=== PATIENT | male | born 1970 | race Caucasian/White ===

== ENCOUNTER 2021-09-01 11:46 | Inpatient (IN) | payer MEDICAID ==
[~2021-09-01] VITALS: Ht 167.6 cm; Wt 65.5 kg
[2021-09-01] MEDS ORDERED: HYDROcodone/acetaminophen 10/325mg tab PO ONE (12:45)
[2021-09-01 13:01] LABS: BASOPHILS # (AUTO) 0.1 X10'3 (0-0.2); BASOPHILS % (AUTO) 0.3 % (0-1); EOSINOPHILS % (AUTO) 0.1 % (0-6); HEMATOCRIT 37.4 % (42.0-52.0); HEMOGLOBIN 12.3 g/dl (14.0-17.9); LYMPHOCYTES # (AUTO) 0.9 X10'3 (1.1-4.8); LYMPHOCYTES % (AUTO) 5.3 % (21-51); MEAN CORPUSCULAR HEMOGLOBIN 31.2 PG (27.0-31.0); MEAN CORPUSCULAR HGB CONC 32.9 g/dL (33.0-36.5); MEAN CORPUSCULAR VOLUME 94.8 FL (78-98); MEAN PLATELET VOLUME 7.1 FL (7.4-10.4); MONOCYTES # (AUTO) 1.7 X10'3 (0-0.9); MONOCYTES % (AUTO) 10.3 % (2-12); NEUTROPHILS # (AUTO) 14.1 X10'3 (1.8-7.7); PLATELET COUNT 425 X10'3 (140-440); RED BLOOD COUNT 3.94 X10'6 (4.70-6.10); RED CELL DISTRIBUTION WIDTH 14.3 % (11.5-14.5); WHITE BLOOD COUNT 16.8 X10'3 (4.5-11.0)
[2021-09-01 13:16] LABS: ALANINE AMINOTRANSFERASE 27 U/L (12-78); ALBUMIN 2.1 G/DL (3.4-5.0); ALBUMIN/GLOBULIN RATIO 0.4 (1.1-1.5); ALKALINE PHOSPHATASE 91 IU/L (46-116); ANION GAP 13 (8-16); ASPARTATE AMINO TRANSFERASE 24 U/L (10-37); BILIRUBIN,TOTAL 0.2 MG/DL (0.1-1.0); BLOOD UREA NITROGEN 22 MG/DL (7-18); BUN/CREATININE RATIO 19.3 (5.4-32.0); CALCIUM 8.5 MG/DL (8.5-10.1); CHLORIDE 100 MMOL/L (99-107); CREATININE 1.14 MG/DL (0.60-1.10); GLUCOSE 108 MG/DL (70-104); POTASSIUM 3.4 MMOL/L (3.5-5.1); SODIUM 135 MMOL/L (135-145); TOTAL CARBON DIOXIDE 22.3 MMOL/L (24-32); TOTAL PROTEIN 7.1 G/DL (6.4-8.2); eGFR 67 ML/MIN
[2021-09-01] MEDS ORDERED: cefTRIAXone 1g/NS 100ml IVPB 100 ML IV ONE (14:50)
[2021-09-01] MEDS ORDERED: normal saline 1000ML IV soln IVB ONE (14:50)
[2021-09-01 14:59] LABS: CLARITY,URINE CLOUDY (Clear); GLUCOSE, URINE NEGATIVE (Neg); KETONES,URINE TRACE mg/dl (Neg); LEUKOCYTE ESTERASE ,URINE TRACE (Neg); NITRITES, URINE NEGATIVE (Neg); OCCULT BLOOD,URINE TRACE-INTACT (Neg); PROTEIN,URINE 30 mg/dl (Neg)
[2021-09-01 15:01] LABS: COLOR,URINE DARK YELLOW (Yellow); UA COLLECTION TYPE CLN CATCH MIDSTREAM
[2021-09-01 15:07] LABS: BACTERIA,URINE 4+ /HPF (Neg); MUCUS STRANDS NONE SEEN /LPF (Neg); RBC,URINE 0-2 /HPF (0-2); SQUAMOUS EPITHELIAL CELL,UR FEW /LPF (FEW)
[2021-09-01] MEDS ORDERED: NO HOME MEDS (15:46)
[2021-09-01] MEDS ORDERED: magnesium 4gm in 100ml NS 100 ML IV PRN (16:55)
[2021-09-01] MEDS ORDERED: ondansetron/PF 4mg/2ml inj IV PRN (16:55)
[2021-09-01] MEDS ORDERED: acetaminophen 325mg tablet PO PRN (16:55)
[2021-09-01] MEDS ORDERED: POTASSIUM BICARB 20meq eff tab 20 MEQ TABLET.EFF PO PRN (16:55)
[2021-09-01] MEDS ORDERED: magnesium 2GM in 50ml NS 50 ML IV PRN (16:55)
[2021-09-01] MEDS ORDERED: magnesium Cl slow-release 64mg tablet PO PRN (16:55)
[2021-09-01] MEDS ORDERED: potassium CL 10mEq/100ml bag 100 ML IV PRN (16:55)
[2021-09-01] MEDS ORDERED: LORazepam 2 mg/ml vial IV PRN (17:25)
[2021-09-01] MEDS: thiamine 100mg tablet PO SCH (17:40)
[2021-09-01] MEDS: folic acid 1mg tablet PO SCH (17:40)
[2021-09-01] MEDS: nicotine 14mg patch - 24hr TD SCH (17:40)
[2021-09-01] MEDS: multivitamins, therapeutics tablet PO SCH (17:41)
[2021-09-01] MEDS: normal saline 1000ml 1,000 ML IV SCH (17:41)
[2021-09-01] MEDS: morphine 2 MG/ML inj. syringe IV PRN (19:37)
[2021-09-01] MEDS: POTASSIUM BICARB 20meq eff tab 20 MEQ TABLET.EFF PO PRN (20:10)
[2021-09-01] MEDS: heparin, porcine 5000 units/ml vial SQ SCH (20:11)
[2021-09-01] MEDS: K and/or MAG REPLACEMENT MC SCH (20:15)
[2021-09-01 20:45] VITALS: BP 114/63
[2021-09-01 22:00] VITALS: BP 114/67
[2021-09-01] MEDS: acetaminophen 325mg tablet PO PRN (22:24)
[2021-09-02] MEDS: POTASSIUM BICARB 20meq eff tab 20 MEQ TABLET.EFF PO PRN ×2 (01:06→05:08)
[2021-09-02] MEDS: morphine 2 MG/ML inj. syringe IV PRN ×2 (01:11→05:08)
[2021-09-02 02:00] VITALS: BP 102/66
--- NOTE | 2021-09-02 02:05 | NUR ---
Rn sent page to respiratory, noted patient has two missed scheduled nebs since coming to floor. [id number]- new admit philip wanted to make sure you are aware of him, he has two missed scheduled nebs. In for pneumonia. Thanks
[2021-09-02] MEDS: albuterol 2.5 MG/3 ML nebule NEB SCH ×8 (02:09→23:05)
[2021-09-02] MEDS: HYDROcodone/acetaminophen 5mg/325mg tablet PO PRN ×2 (02:24→10:06)
[2021-09-02] MEDS: normal saline 1000ml 1,000 ML IV SCH ×3 (02:57→18:36)
[2021-09-02 06:00] VITALS: BP 104/65
[2021-09-02 06:41] LABS: BASOPHILS # (AUTO) 0.1 X10'3 (0-0.2); BASOPHILS % (AUTO) 0.4 % (0-1); EOSINOPHILS % (AUTO) 0.2 % (0-6); HEMATOCRIT 32.7 % (42.0-52.0); HEMOGLOBIN 11.1 g/dl (14.0-17.9); LYMPHOCYTES # (AUTO) 0.7 X10'3 (1.1-4.8); LYMPHOCYTES % (AUTO) 4.2 % (21-51); MEAN CORPUSCULAR HEMOGLOBIN 32.2 PG (27.0-31.0); MEAN CORPUSCULAR HGB CONC 33.8 g/dL (33.0-36.5); MEAN CORPUSCULAR VOLUME 95.2 FL (78-98); MEAN PLATELET VOLUME 7.6 FL (7.4-10.4); MONOCYTES % (AUTO) 5.6 % (2-12); NEUTROPHILS # (AUTO) 15.3 X10'3 (1.8-7.7); NEUTROPHILS % (AUTO) 89.6 % (42-75); PLATELET COUNT 427 X10'3 (140-440); RED BLOOD COUNT 3.44 X10'6 (4.70-6.10); RED CELL DISTRIBUTION WIDTH 14.3 % (11.5-14.5); WHITE BLOOD COUNT 17.1 X10'3 (4.5-11.0)
[2021-09-02 06:48] LABS: ALANINE AMINOTRANSFERASE 40 U/L (12-78); ALBUMIN 1.7 G/DL (3.4-5.0); ALBUMIN/GLOBULIN RATIO 0.4 (1.1-1.5); ALKALINE PHOSPHATASE 226 IU/L (46-116); ANION GAP 8 (8-16); ASPARTATE AMINO TRANSFERASE 62 U/L (10-37); BILIRUBIN,TOTAL 0.8 MG/DL (0.1-1.0); BLOOD UREA NITROGEN 16 MG/DL (7-18); BUN/CREATININE RATIO 18.4 (5.4-32.0); CALCIUM 7.9 MG/DL (8.5-10.1); CHLORIDE 101 MMOL/L (99-107); CREATININE 0.87 MG/DL (0.60-1.10); GLUCOSE 131 MG/DL (70-104); LIPASE 276 U/L (73-393); POTASSIUM 3.9 MMOL/L (3.5-5.1); SODIUM 135 MMOL/L (135-145); TOTAL CARBON DIOXIDE 26.3 MMOL/L (24-32); TOTAL PROTEIN 5.8 G/DL (6.4-8.2); eGFR > 90 ML/MIN
[2021-09-02] MEDS: K and/or MAG REPLACEMENT MC SCH ×2 (08:00→19:21)
[2021-09-02] MEDS: heparin, porcine 5000 units/ml vial SQ SCH ×2 (10:05→19:57)
[2021-09-02] MEDS: multivitamins, therapeutics tablet PO SCH (10:05)
[2021-09-02] MEDS: thiamine 100mg tablet PO SCH (10:05)
[2021-09-02] MEDS: folic acid 1mg tablet PO SCH (10:05)
[2021-09-02] MEDS: azithromycin/NS 500mg/250ml 250 ML IV SCH (10:06)
[2021-09-02] MEDS: CefTRIAXone 2gm/NS 100ml IVPB 100 ML IV SCH (10:07)
[2021-09-02] MEDS: nicotine 14mg patch - 24hr TD SCH ×2 (10:08→17:52)
[2021-09-02 11:00] VITALS: BP 96/49
[2021-09-02 15:00] VITALS: BP 97/70
[2021-09-02 18:00] VITALS: BP 110/69
[2021-09-02] MEDS: temazepam 15mg capsule PO PRN (19:57)
[2021-09-02 22:00] VITALS: BP 124/68
[2021-09-02] MEDS: acetaminophen 325mg tablet PO PRN (22:21)
[2021-09-02] MEDS: LORazepam 1 MG tablet PO PRN (22:26)
--- NOTE | 2021-09-02 22:32 | NUR ---
Patient has temp of 103.2, given PRN Tylenol for fever. Patient complaining of feeling short of breath, SPO2 97% on 2 liters. RN instructed patient to taking slow deep breaths in through his nose and out threw his mouth, instructed to use IS. Patient dose have history of ETOH abuse and tachy at 122, patient given PRN PO Ativan. Will continue to monitor.
--- NOTE | 2021-09-02 22:56 | NUR ---
RN checked on patient 30 min after PRN Tylenol and Ativan, patient sleeping, no agitation and restlessness noted. Will continue to monitor.
[2021-09-03 02:00] VITALS: BP 119/70
--- NOTE | 2021-09-03 02:15 | NUR ---
patient sitting up in bed during hourly rounding, Rn noted patient had O2 off, IV pulled out and patient gown and bedding felt wet. Patient helped up to chair, bedding changed, urinal emptied, and after vitals patient got back in bed. New IV placed and fluids restarted. patient stated he slept very hard after meds and feels much better, pain very manageable and no issues with breathing at this time. Will continue to monitor.
[2021-09-03] MEDS: albuterol 2.5 MG/3 ML nebule NEB SCH ×6 (03:07→22:33)
[2021-09-03] MEDS: normal saline 1000ml 1,000 ML IV SCH ×2 (05:35→18:39)
[2021-09-03 06:00] VITALS: BP 104/46
[2021-09-03 06:04] LABS: BASOPHILS % (AUTO) 0.2 % (0-1); EOSINOPHILS % (AUTO) 0.2 % (0-6); HEMATOCRIT 32.5 % (42.0-52.0); HEMOGLOBIN 10.9 g/dl (14.0-17.9); LYMPHOCYTES # (AUTO) 0.8 X10'3 (1.1-4.8); LYMPHOCYTES % (AUTO) 4.4 % (21-51); MEAN CORPUSCULAR HEMOGLOBIN 31.4 PG (27.0-31.0); MEAN CORPUSCULAR HGB CONC 33.4 g/dL (33.0-36.5); MEAN PLATELET VOLUME 7.3 FL (7.4-10.4); MONOCYTES % (AUTO) 5.5 % (2-12); NEUTROPHILS # (AUTO) 16.2 X10'3 (1.8-7.7); NEUTROPHILS % (AUTO) 89.7 % (42-75); PLATELET COUNT 530 X10'3 (140-440); RED BLOOD COUNT 3.46 X10'6 (4.70-6.10); RED CELL DISTRIBUTION WIDTH 14.3 % (11.5-14.5); WHITE BLOOD COUNT 18.1 X10'3 (4.5-11.0)
[2021-09-03 06:17] LABS: ALANINE AMINOTRANSFERASE 30 U/L (12-78); ALBUMIN 1.7 G/DL (3.4-5.0); ALBUMIN/GLOBULIN RATIO 0.4 (1.1-1.5); ALKALINE PHOSPHATASE 208 IU/L (46-116); ANION GAP 10 (8-16); ASPARTATE AMINO TRANSFERASE 17 U/L (10-37); BILIRUBIN,TOTAL 0.6 MG/DL (0.1-1.0); BLOOD UREA NITROGEN 11 MG/DL (7-18); BUN/CREATININE RATIO 14.1 (5.4-32.0); CALCIUM 8.3 MG/DL (8.5-10.1); CHLORIDE 102 MMOL/L (99-107); CREATININE 0.78 MG/DL (0.60-1.10); GLUCOSE 114 MG/DL (70-104); LIPASE 497 U/L (73-393); POTASSIUM 4.2 MMOL/L (3.5-5.1); SODIUM 138 MMOL/L (135-145); TOTAL PROTEIN 5.9 G/DL (6.4-8.2); eGFR > 90 ML/MIN
[2021-09-03] MEDS: K and/or MAG REPLACEMENT MC SCH ×2 (08:00→19:20)
[2021-09-03] MEDS: heparin, porcine 5000 units/ml vial SQ SCH ×2 (08:32→19:24)
[2021-09-03] MEDS: multivitamins, therapeutics tablet PO SCH (08:32)
[2021-09-03] MEDS: HYDROcodone/acetaminophen 5mg/325mg tablet PO PRN ×3 (08:32→19:24)
[2021-09-03] MEDS: folic acid 1mg tablet PO SCH (08:33)
[2021-09-03] MEDS: thiamine 100mg tablet PO SCH (08:34)
[2021-09-03] MEDS: CefTRIAXone 2gm/NS 100ml IVPB 100 ML IV SCH (08:35)
[2021-09-03] MEDS: azithromycin/NS 500mg/250ml 250 ML IV SCH (08:35)
[2021-09-03 15:00] VITALS: BP 107/62
[2021-09-03 18:00] VITALS: BP 103/60
--- NOTE | 2021-09-03 20:26 | NUR ---
Patient right lateral clavicle is very prominent, more so than on admit, protruding out of skin. Patient states it is more painful now that when he came in and has been bothering him more today. Patient medicated with PRN meds depending on pain scale. Will continue to monitor.
[2021-09-03 22:00] VITALS: BP 117/66
[2021-09-03] MEDS: temazepam 15mg capsule PO PRN (22:47)
[2021-09-04 02:00] VITALS: BP 106/53
[2021-09-04] MEDS: HYDROcodone/acetaminophen 5mg/325mg tablet PO PRN ×3 (02:13→15:41)
[2021-09-04 06:43] LABS: BASOPHILS % (AUTO) 0.2 % (0-1); EOSINOPHILS # (AUTO) 0.1 X10'3 (0-0.9); EOSINOPHILS % (AUTO) 0.4 % (0-6); HEMATOCRIT 28.8 % (42.0-52.0); HEMOGLOBIN 9.9 g/dl (14.0-17.9); LYMPHOCYTES # (AUTO) 0.9 X10'3 (1.1-4.8); LYMPHOCYTES % (AUTO) 5.9 % (21-51); MEAN CORPUSCULAR HEMOGLOBIN 32.8 PG (27.0-31.0); MEAN CORPUSCULAR HGB CONC 34.2 g/dL (33.0-36.5); MEAN CORPUSCULAR VOLUME 96.2 FL (78-98); MEAN PLATELET VOLUME 7.5 FL (7.4-10.4); MONOCYTES % (AUTO) 6.4 % (2-12); NEUTROPHILS # (AUTO) 13.7 X10'3 (1.8-7.7); NEUTROPHILS % (AUTO) 87.1 % (42-75); PLATELET COUNT 542 X10'3 (140-440); RED CELL DISTRIBUTION WIDTH 13.8 % (11.5-14.5); WHITE BLOOD COUNT 15.8 X10'3 (4.5-11.0)
[2021-09-04 07:00] VITALS: BP 110/69
--- NOTE | 2021-09-04 07:05 | NUR ---
Patient in room PCU 3013. I have received report from Kevin JACKSON and had the opportunity to ask questions and assume patient care.
[2021-09-04] MEDS: albuterol 2.5 MG/3 ML nebule NEB SCH ×5 (07:08→23:16)
[2021-09-04 07:12] LABS: ALANINE AMINOTRANSFERASE 25 U/L (12-78); ALBUMIN 1.6 G/DL (3.4-5.0); ALBUMIN/GLOBULIN RATIO 0.4 (1.1-1.5); ALKALINE PHOSPHATASE 138 IU/L (46-116); ANION GAP 6 (8-16); ASPARTATE AMINO TRANSFERASE 17 U/L (10-37); BILIRUBIN,TOTAL 0.4 MG/DL (0.1-1.0); BLOOD UREA NITROGEN 9 MG/DL (7-18); BUN/CREATININE RATIO 11.1 (5.4-32.0); CHLORIDE 105 MMOL/L (99-107); CREATININE 0.81 MG/DL (0.60-1.10); GLUCOSE 105 MG/DL (70-104); POTASSIUM 4.4 MMOL/L (3.5-5.1); SODIUM 136 MMOL/L (135-145); TOTAL CARBON DIOXIDE 25.3 MMOL/L (24-32); TOTAL PROTEIN 5.6 G/DL (6.4-8.2); eGFR > 90 ML/MIN
[2021-09-04] MEDS: thiamine 100mg tablet PO SCH (07:56)
[2021-09-04] MEDS: multivitamins, therapeutics tablet PO SCH (07:56)
[2021-09-04] MEDS: folic acid 1mg tablet PO SCH (07:56)
[2021-09-04] MEDS: nicotine 14mg patch - 24hr TD SCH (07:57)
[2021-09-04] MEDS: heparin, porcine 5000 units/ml vial SQ SCH ×2 (07:58→21:59)
[2021-09-04] MEDS: K and/or MAG REPLACEMENT MC SCH ×2 (08:00→18:43)
[2021-09-04] MEDS: piperacillin/tazo 3.375gm/50ml 50 ML IV SCH ×2 (08:13→15:40)
[2021-09-04] MEDS: LORazepam 1 MG tablet PO PRN ×2 (10:45→17:21)
[2021-09-04 11:50] VITALS: BP 107/64
[2021-09-04] MEDS: normal saline 1000ml 1,000 ML IV SCH ×2 (14:14→18:43)
[2021-09-04 16:00] VITALS: BP 108/56
--- NOTE | 2021-09-04 17:43 | NUR ---
patient anxious and painful with right clavicle seen by Dr Green. Patient also stated that he does drink 1/2 pint of vodka to a pint. medicated x2 with ativan with good effect. patient appears shaky at times. friend present. will continue to monitor
[2021-09-04 18:00] VITALS: BP 91/50
--- NOTE | 2021-09-04 18:26 | NUR ---
Problems reprioritized. Patient report given, questions answered & plan of care reviewed with zahra JACKSON.
--- NOTE | 2021-09-04 18:46 | NUR ---
Patient in room PCU 3013. I have received report from Leyda JACKSON and had the opportunity to ask questions and assume patient care.
[2021-09-04 22:00] VITALS: BP 118/64
[2021-09-05] MEDS: piperacillin/tazo 3.375gm/50ml 50 ML IV SCH ×2 (00:15→07:15)
[2021-09-05 02:05] VITALS: BP 97/57
--- NOTE | 2021-09-05 06:25 | NUR ---
Problems reprioritized. Patient report given, questions answered & plan of care reviewed with Leyda JACKSON.
--- NOTE | 2021-09-05 06:27 | NUR ---
Patient in room PCU 3013. I have received report from zahra JACKSON and had the opportunity to ask questions and assume patient care.
[2021-09-05 06:56] VITALS: BP 93/59
[2021-09-05] MEDS: albuterol 2.5 MG/3 ML nebule NEB SCH ×2 (07:00→10:49)
[2021-09-05 07:10] LABS: BASOPHILS # (AUTO) 0.1 X10'3 (0-0.2); BASOPHILS % (AUTO) 0.7 % (0-1); EOSINOPHILS # (AUTO) 0.1 X10'3 (0-0.9); EOSINOPHILS % (AUTO) 0.5 % (0-6); HEMATOCRIT 30.7 % (42.0-52.0); HEMOGLOBIN 10.5 g/dl (14.0-17.9); LYMPHOCYTES # (AUTO) 1.1 X10'3 (1.1-4.8); MEAN CORPUSCULAR HEMOGLOBIN 32.4 PG (27.0-31.0); MEAN CORPUSCULAR HGB CONC 34.1 g/dL (33.0-36.5); MEAN PLATELET VOLUME 7.6 FL (7.4-10.4); MONOCYTES # (AUTO) 1.1 X10'3 (0-0.9); MONOCYTES % (AUTO) 7.3 % (2-12); NEUTROPHILS # (AUTO) 12.7 X10'3 (1.8-7.7); NEUTROPHILS % (AUTO) 84.5 % (42-75); PLATELET COUNT 703 X10'3 (140-440); RED BLOOD COUNT 3.23 X10'6 (4.70-6.10); RED CELL DISTRIBUTION WIDTH 14.2 % (11.5-14.5); WHITE BLOOD COUNT 15.1 X10'3 (4.5-11.0)
[2021-09-05] MEDS: folic acid 1mg tablet PO SCH (07:15)
[2021-09-05] MEDS: multivitamins, therapeutics tablet PO SCH (07:15)
[2021-09-05] MEDS: HYDROcodone/acetaminophen 5mg/325mg tablet PO PRN (07:15)
[2021-09-05] MEDS: nicotine 14mg patch - 24hr TD SCH (07:16)
[2021-09-05] MEDS: thiamine 100mg tablet PO SCH (07:16)
[2021-09-05] MEDS: heparin, porcine 5000 units/ml vial SQ SCH (07:17)
[2021-09-05 07:42] LABS: ALANINE AMINOTRANSFERASE 30 U/L (12-78); ALBUMIN 1.8 G/DL (3.4-5.0); ALBUMIN/GLOBULIN RATIO 0.4 (1.1-1.5); ALKALINE PHOSPHATASE 135 IU/L (46-116); ANION GAP 8 (8-16); ASPARTATE AMINO TRANSFERASE 20 U/L (10-37); BILIRUBIN,TOTAL 0.5 MG/DL (0.1-1.0); BLOOD UREA NITROGEN 12 MG/DL (7-18); BUN/CREATININE RATIO 13.3 (5.4-32.0); CALCIUM 8.3 MG/DL (8.5-10.1); CHLORIDE 103 MMOL/L (99-107); GLUCOSE 98 MG/DL (70-104); POTASSIUM 4.2 MMOL/L (3.5-5.1); SODIUM 136 MMOL/L (135-145); TOTAL CARBON DIOXIDE 25.1 MMOL/L (24-32); TOTAL PROTEIN 6.2 G/DL (6.4-8.2); eGFR 88 ML/MIN
[2021-09-05] MEDS ORDERED: LORazepam 0.5 MG tablet PO PRN (08:50)
[2021-09-05] MEDS ORDERED: CLIN-97 PO (10:50)
[2021-09-05] MEDS ORDERED: FOLI0.4T14 PO (10:50)
[2021-09-05] MEDS ORDERED: NICO-631 TD (10:50)
[2021-09-05] MEDS ORDERED: LEVO500T90 PO (10:50)
[2021-09-05] MEDS ORDERED: MULT-25 PO (10:50)
[2021-09-05] MEDS ORDERED: THIA100T66 PO (10:50)
--- NOTE | 2021-09-05 12:47 | NUR ---
patient up walking x3 in hallway seen by Dr Green. Is for discharge. dietary consult called as patients dom ozuna. Patient given all Dc instructions. PIV removed in tact patient encouraged to get a PCP and to follow up with ortho for clavicle injury. Patient DC home via private car with friend in stable condition.
== END 2021-09-05 12:50 | disposition home or self-care (01) | DRG 137 ==
LOC: ER 11:47 → ED HOLD 17:02 → EDBEDREQ 20:03 → PCU 3S 20:45
PROVIDERS: ADMIT Internal Medicine; ATTEND Family Medicine
DX: J69.0 Pneumonitis due to inhalation of food and vomit (principal); N17.0 Acute kidney failure with tubular necrosis; D63.8 Anemia in other chronic diseases classified elsewhere; E88.09 Other disorders of plasma-protein metabolism, not elsewhere classified; J68.0 Bronchitis and pneumonitis due to chemicals, gases, fumes and vapors; Z20.822 Contact with and (suspected) exposure to COVID-19; S43.004A Unspecified dislocation of right shoulder joint, initial encounter; R00.0 Tachycardia, unspecified; B96.20 Unspecified Escherichia coli [E. coli] as the cause of diseases classified elsewhere; N39.0 Urinary tract infection, site not specified; M25.511 Pain in right shoulder; N18.30 Chronic kidney disease, stage 3 unspecified; E87.6 Hypokalemia; F10.20 Alcohol dependence, uncomplicated; F17.210 Nicotine dependence, cigarettes, uncomplicated; V89.9XXA Person injured in unspecified vehicle accident, initial encounter; Y93.89 Activity, other specified; Y92.89 Other specified places as the place of occurrence of the external cause; Y99.8 Other external cause status; Z72.89 Other problems related to lifestyle; Z71.6 Tobacco abuse counseling; Z71.41 Alcohol abuse counseling and surveillance of alcoholic
CPT/HCPCS: 36415; 71046; 71250; 73000; 73060; 80053; 81001; 83605; 83690; 84145; 84443; 85025; 87040; 87077; 87081; 87088; 87186; 87635; 94640; 94760; 96365; 97116; 97161; 97530; 99285; A4615; G0378; J0456; J0696; J1644; J2270; J2543; J7030; J7040